=== PATIENT | male | born 1955 ===

== ENCOUNTER 2024-09-28 06:22 | Day surgery (SDC) | payer OTHER ==
[2024-09-23 08:46] VITALS: BP 122/79
[2024-09-23 09:23] LABS: PH,URINE 6.5 (5.0-8.0); URINE APPEARANCE Clear; URINE BILIRRUBIN Negative (NEGATIVE); URINE BLOOD Negative; URINE COLOR Yellow; URINE GLUCOSE Negative (NEGATIVE); URINE KETONE Negative (NEGATIVE); URINE LEUKOCYTE Negative; URINE NITRATE Negative; URINE PROTEIN Negative (NEGATIVE)
[2024-09-23 09:24] LABS: URINE RBC 3.2 uL (0.0-20.8)
[2024-09-23 09:27] LABS: HEMATOCRIT 47.7 % (39.0-48.0); MEAN CELL VOLUME 96.5 fL (80.0-100.00); MEAN CORPUSCULAR HEMOGLOBIN 32.4 pg (27.00-32.0); MEAN CORPUSCULAR HGB CONC 33.6 g/dl (32.0-36.0); PLATELET COUNT 189 K/uL (150-450); RED BLOOD COUNT 4.94 M/uL (4.00-6.00); RED CELL DISTRIBUTION WIDTH 13.1 % (11.5-14.5)
[2024-09-23 09:37] LABS: URINE BACTERIA 1.2 uL (0.0-1933); URINE EPITHELIAL CELLS 0.6 uL (0.0-38.8); URINE WBC 1.2 uL (0.0-23.2)
[2024-09-23 09:54] LABS: INR 1.02; PARTIAL THROMBOPLASTIN TIME 26.3 SECONDS (22.0-34.0); PROTHROMBIN TIME 11.1 SECONDS (9.0-11.5)
[2024-09-23 09:58] LABS: CALCIUM 9.5 mg/dL (8.5-10.1); CREATININE SERUM 0.92 mg/dL (0.70-1.30); GFR 81.81; POTASSIUM 3.95 mEq/L (3.5-5.1)
[~2024-09-28] VITALS: Ht 188 cm; Wt 97.5 kg
[~2024-09-28 06:22] MED LIST: COZAAR100 MG PO; GLUMETZA500 MG PO
[2024-09-28] MEDS ORDERED: ENOXAPARIN SODIUM 40 MG/0.4 ML SYRINGE SUBCUTANEO ONE (14:38)
[2024-09-28] MEDS ORDERED: CEFTRIAXONE SODIUM 2,000 MG VIAL ONE (14:39)
[2024-09-28] MEDS ORDERED: METRONIDAZOLE/SODIUM CHLORIDE 500 MG/100 ML PIGGYBACK IV ONE (14:39)
[2024-09-28] MEDS ORDERED: PERCOCET 5-3251 EACH PO (17:09)
[2024-09-28] MEDS ORDERED: NEURONTIN300 MG PO (17:10)
[2024-09-28] MEDS ORDERED: POLY119PG PO (17:10)
[2024-09-28] MEDS ORDERED: CELEBREX200MG PO (17:10)
== END 2024-09-28 19:15 | disposition home or self-care (01) ==
LOC: CIR.AMB 06:22
PROVIDERS: ATTEND Surgery
DX: K40.90 Unilateral inguinal hernia, without obstruction or gangrene, not specified as recurrent (principal)
CPT/HCPCS: 49650; C1781